=== PATIENT | male | born 1935 | race Hispanic/Latino ===

== ENCOUNTER 2018-07-21 06:35 | Day surgery (SDC) | payer MEDICARE ==
[2018-07-18 10:30] VITALS: BP 148/71
[2018-07-18 10:32] LABS: BASOPHILS % (AUTO) 0.6 % (0.0-5.0); EOSINOPHILS % (AUTO) 1.3 % (0.0-8.0); HEMATOCRIT 42.2 % (42-54); LYMPHOCYTES % (AUTO) 15.9 % (21.0-51.0); MEAN CORPUSCULAR HEMOGLOBIN 29.4 pg (27.0-33.0); MEAN CORPUSCULAR HGB CONC 32.4 g/dL (32.0-36.0); MEAN CORPUSCULAR VOLUME 90.8 fL (79-99); MONOCYTES % (AUTO) 13.8 % (3.0-13.0); NEUTROPHILS % (AUTO) 68.4 % (40.0-77.0); PLATELET COUNT (AUTO) 75 K/uL (130-400); RED BLOOD CELL COUNT(AUTO) 4.64 MIL/uL (4.50-6.20); RED CELL DISTRIBUTION WIDTH 14.7 % (11.0-15.5); WHITE BLOOD COUNT (AUTO) 3.7 K/uL (4.8-10.8)
[2018-07-18 10:41] LABS: CREATININE 1.1 mg/dL (0.5-1.5); POTASSIUM 4.2 mmol/L (3.5-5.1)
[2018-07-18 10:43] LABS: APPEARANCE,URINE Cloudy (CLEAR); BILIRUBIN,URINE Small (NEGATIVE); COLOR,URINE Dark Yellow (YELLOW); GLUCOSE, URINE (UA) Negative (NEGATIVE); KETONES,URINE Trace mg/dL (NEGATIVE); LEUKOCYTE ESTERASE ,URINE Small (NEGATIVE); NITRATE,URINE Negative (NEGATIVE); OCCULT BLOOD,URINE Negative (NEGATIVE); PROTEIN,URINE POS 1+ (NEGATIVE)
[2018-07-18 10:45] LABS: INR 1.15 (0.85-1.15)
[2018-07-18 10:46] LABS: BACTERIA,URINE Rare /HPF (None Seen); RBC,URINE 0-1 /HPF (0-1); SQUAMOUS EPITHELIAL CELL,UR Rare /HPF (0-2)
--- NOTE | 2018-07-20 16:00 | NUR ---
ABNORMAL LABS REPORTED ALL ABNORMAL LABS AND FAXED TO [facility] IN DR. PERRY OFFICE. PLATELETS 75. PENDING CALL BACK WITH ORDERS.
--- NOTE | 2018-07-20 17:19 | NUR ---
ABNORMAL LABS GOT CALL BACK FROM [facility] FROM DR. PERRY OFFICE. NO NEW ORDERS GIVEN. SHE STATED THAT DR. BARNETT IS AWARE OF ALL ABNORMAL LABS. PLATELETS 75, URINE . PATIENT IS ON LEVAQUIN FOR THE PAST TWO DAYS.
[2018-07-21] VITALS (15 sets, daily range): BP systolic 122–143; BP diastolic 63–79
[~2018-07-21] VITALS: Ht 162.6 cm; Wt 82.4 kg
[~2018-07-21 06:35] MED LIST: CHOL500050 PO; FERR325T22 PO; HYDR25TA PO; METO-391 PO; TAMS0.4C32 PO
[2018-07-21] MEDS ORDERED: CEFTRIAXONE SODIUM 1 GM ONE (07:00)
[2018-07-21] MEDS ORDERED: GENTAMICIN 80 MG/NS 100 ML PB 100 ML IV ONE (07:00)
[2018-07-21] MEDS ORDERED: LACTATED RINGERS 1000ML 1,000 ML IV ONE (07:01)
--- NOTE | 2018-07-21 07:57 | NUR ---
EDEMA pt right knee swollen states has arthritis Addendum: 07/21/18 at 0802 by SUMEET CHICAS RN RN Amended: Links added.
--- NOTE | 2018-07-21 07:59 | NUR ---
COLOSTOMY pt has colostomy bag left abd since 1992 Addendum: 07/21/18 at 0802 by SUMEET CHICAS RN RN Amended: Links added.
[2018-07-21] MEDS ORDERED: GENTAMICIN 80 MG/NS 100 ML PB 100 ML IV PRN (08:00)
[2018-07-21] MEDS ORDERED: CEFTRIAXONE SODIUM 1 GM IVP ONE (08:00)
[2018-07-21] MEDS ORDERED: NEOMY SULF/BACITRAC ZN/POLY OINT 30GM TUBE TP ONE (10:51)
[2018-07-21] MEDS ORDERED: BUPIVACAINE/PF 0.25% 30ML VIAL IJ ONE (10:51)
[2018-07-21] MEDS ORDERED: PROPOFOL 10 MG/ML 20ML VIAL IV ONE (10:53)
[2018-07-21] MEDS ORDERED: FENTANYL CITRATE PF 50 MCG/1 ML 5ML AMP IV ONE (10:54)
[2018-07-21] MEDS ORDERED: ROCURONIUM 10MG/1ML SYR 10 MG/ML ML ONE (10:54)
[2018-07-21] MEDS ORDERED: GLYCOPYRROLATE 1 MG/5 ML SYRINGE ONE (11:26)
[2018-07-21] MEDS ORDERED: NEOSTIGMINE 5MG/5ML SYR IV ONE (11:27)
--- NOTE | 2018-07-21 14:00 | NUR ---
Pt discharged home, tolerating clear liquids, ambulating with stand-by assistance. Pt denies any pain, nausea or dizziness. Prescription for bacitracin and Tylenol #3 given to daughter. Dressing to penis remains dry, clean and intact, no signs of bleeding/swelling noted. Instructions for dressing given. Pt instructed to watch for excessive bleeding, signs of infection, or if unable to pee to call Dr. Medina or go to ER if not able to reach. Pt and family report no further questions at this time.
== END 2018-07-21 14:00 | disposition home or self-care (01) ==
LOC: DAH 06:35
PROVIDERS: ATTEND Urology
DX: N47.1 Phimosis (principal); R35.1 Nocturia; I10 Essential (primary) hypertension; M19.90 Unspecified osteoarthritis, unspecified site; M79.7 Fibromyalgia; N40.1 Benign prostatic hyperplasia with lower urinary tract symptoms; Z79.01 Long term (current) use of anticoagulants
CPT/HCPCS: 36415; 52000; 54161; 71045; 80048; 81001; 85025; 85610; 87088; 93005; A4218; A4600; J0696; J1580; J2704; J2710; J3010; J3490 ×2; J7120